=== PATIENT | male | born 1985 | race Caucasian/White ===

== ENCOUNTER 2019-12-11 19:10 | Emergency (ER) | payer OTHER, SELFPAY ==
[2019-12-11 19:31] VITALS: BP 128/79; PULSE 98; RESP 20; TEMP 37; O2SAT 96; BMI 26.4
[2019-12-11 20:18] LABS: COVID19 -Nasal RAPID Negative (Negative)
--- NOTE | 2019-12-11 21:01 | ED_ITS ---
HPI - Recheck/Abnormal Lab/Rx <PAWEL Cortes - Last Filed: 12/11/19 21:10> General Chief Complaint: Recheck/Abnormal Lab/Rx Stated Complaint: wants a covid test, no symptoms Time Seen by Provider: 12/11/19 20:35 Source: patient Mode of arrival: Ambulatory Limitations: no limitations History of Present Illness HPI narrative: This is a 33-year-old male, nonsmoker, who has no contributory medical history presents to ED requesting for COVID-19 test. Patient reports he received a phone call from work that at least 2 other coworkers had positive COVID test. He reports he had close contact with his coworkers on Thursday through . He is not sure whether they have Covid symptoms. Patient reports he does not have Covid releated symptoms such as fever, dyspnea, cough, sore throat, headache, fatigue, or diarrhea. Patient is concerned since he has very young daughter who has respiratory problems and would like to get test done today. Related Data Allergies Allergy/AdvReac Type Severity Reaction Status Date / Time No Known Drug Allergies Allergy Verified 12/11/19 19:37 Review of Systems <PAWEL Cortes - Last Filed: 12/11/19 21:10> Review of Systems Narrative: General: Denies fever, chills, fatigue, malaise, sweats. HEENT: Denies sinus pain, ear pain, sore throat, difficulty swallowing, dizziness. Respiratory: Denies dyspnea, cough, wheezing, hemoptysis, sputum. Cardiovascular: Denies chest pain, palpitations, orthopnea, edema. Gastrointestinal: Denies nausea, vomiting, abdominal pain, diarrhea, constipation, melena. : Denies dysuria, frequency, incontinence, hematuria, urinary retention. Musculoskeletal: Denies weakness, joint pain or bony pain. Skin: Denies rash, skin lesions, or other. Neurologic: Denies weakness, headache, numbness, change in speech, confusion, seizures, incoordination. Psychiatric: No concerning psychosocial issues. 12-point review of systems is negative except for those stated above. Patient History <PAWEL Cortes - Last Filed: 12/11/19 21:10> Medical History No significant past medical history (Acute) Surgical History No pertinent past surgical history (Acute) Social History Smoking Status: Never smoker Smoking Status: Never smoker alcohol intake frequency: 0-2 drinks per day Substance Use Type: does not use Exam <PAWEL Cortes - Last Filed: 12/11/19 21:10> Narrative Exam Narrative: General appearance: well developed, well nourished, in no acute distress. Head: normocephalic, atraumatic, no scalp lesions, non-tender. ENT: Hearing grossly intact. Nose without bleeding, purulent discharge. Mucous membrane moist, no mucosal lesion. Throat without erythema, tonsillar hypertrophy or exudate. Uvula in midline, airway patent. Neck/Thyroid: neck supple, full range of motion, no visible masses or meningeal signs. No JVD, non-tender without lymphadenopathy. Skin: no suspicious rashes, lesions over visible areas. Warm and dry and appropriate color for ethnicity. Heart: no clubbing, no cyanosis, no edema. S1 and S2 normal. RRR w/o murmurs, clicks, or bruits. Lungs: Breathing even and unlabored. No stridor. No accessory muscles used. Able to speak in full sentences. Chest: normal shape and expansion. Abdomen: non-obese, non-distended. Neurologic: alert and oriented. Cognitive exam, [employer]ATOR and PNS grossly intact on informal exam. Psych: good eye contact, normal affect. Initial Vital Signs Initial Vital Signs: Vital Signs Temperature 98.6 F 12/11/19 19:31 Pulse Rate 98 H 12/11/19 19:31 Respiratory Rate 20 12/11/19 19:31 Blood Pressure 128/79 12/11/19 19:31 Pulse Oximetry 96 12/11/19 19:31 <Ingris Cornejo MD - Last Filed: 12/12/19 02:58> Initial Vital Signs Initial Vital Signs: Vital Signs Temperature 98.6 F 12/11/19 19:31 Pulse Rate 98 H 12/11/19 19:31 Respiratory Rate 20 12/11/19 19:31 Blood Pressure 128/79 12/11/19 19:31 Pulse Oximetry 96 12/11/19 19:31 Scores <Devendra BestPAWEL - Last Filed: 12/11/19 21:10> GCS Gerardo coma scale eye opening: Spontaneous Gerardo coma scale verbal response: Orientated [place] coma scale motor response: Obey commands Gerardo coma scale total score: 15 Course <Devendra BestPAWEL - Last Filed: 12/11/19 21:10> Orders Ordered: ED Orders 12/11/19 19:41 COVID19 -ED/INPAT/OR/L&D Stat Vital Signs Vital signs: Vital Signs - 8 hr 12/11/19 19:31 Temperature 98.6 F Pulse Rate 98 H Respiratory Rate 20 Blood Pressure 128/79 Pulse Oximetry 96 <Ingris Cornejo MD - Last Filed: 12/12/19 02:58> Orders Ordered: ED Orders 12/11/19 19:41 COVID19 -ED/INPAT/OR/L&D Stat Vital Signs Vital signs: Vital Signs - 8 hr 12/11/19 19:31 Temperature 98.6 F Pulse Rate 98 H Respiratory Rate 20 Blood Pressure 128/79 Pulse Oximetry 96 MDM - Recheck/Abnormal Lab/Rx <Devendra LeyWillieAlexanderPAWEL costello - Last Filed: 12/11/19 21:10> Differential Diagnosis Differential diagnosis: Likely other (Encounter for lab test for Covid) Medical Records Attestation: I reviewed the patient's medical records. Lab Data Attestation: I reviewed the patient's lab results. 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 Patient is concerned since his young daughter has respiratory problems. Patient endorses no Covid related symptoms. Patient is afebrile with stable vital signs. Patient's Covid test is negative. Patient advised to continue with good hand hygiene and social distancing. Provided handout on COVID-19 prevention and what to do if has symptoms. Return precautions were discussed with patient and he verbalized understanding and agreement with the treatment plan. <Ingris Cornejo MD - Last Filed: 12/12/19 02:58> Lab Data Labs: Lab Results 12/11/19 Range/Units 19:41 COVID-19 PCR Negative (Negative) Discharge Plan Departure Patient Disposition: Home Clinical Impression: Encounter for laboratory testing for COVID-19 virus Discharge Date/Time: 12/11/19 21:03 Instructions: Can COVID-19 be prevented? Activity Restrictions/Additional Instructions: You you were here today for Covid test after close contact with co-workers who are positive for Covid. Your test today was negative. Please continue to keep social distancing, good hand hygiene to prevent cope with infection. What to do: *Take your medications as directed. *Follow up with your primary care provider in 2-3 days, call for an appointment. Let them know you were seen in the ED and that we asked you to be seen in follow up. *Return to ED if you have any new, worsening, or concerning symptoms, such as [short of breath, chest pain, sore throat, cough, fever, diarrhea, fatigue or any acute concerns]. Referrals: [facility] [Outside] <Ingris Cornejo MD - Last Filed: 12/12/19 02:58> Cosign ED Attending Cosignature Attestation: I was immediately available in the department for consultation throughout this patient's visit. I agree with documentation as above. Ingris Cornejo MD
== END 2019-12-11 21:03 | disposition home or self-care (01) ==
PROVIDERS: Emergency Provider Nurse Practitioner Family
DX: Z03.818 Encounter for observation for suspected exposure to other biological agents ruled out (principal)
CPT/HCPCS: 87635; 99281; 99282

== ENCOUNTER → 2021-06-18 10:40 | Outpatient (CLI) | payer OTHER, SELFPAY ==
--- NOTE | 2021-06-18 | DI.MRI.S_ITS ---
PROCEDURE: MR SHOULDER RT W CON INDICATIONS: RIGHT SHOULDER PAIN TECHNIQUE: After the administration of 12 mL of dilute intra-articular Gadolinium contrast, oblique coronal T1 and T2 spin echo with fat saturation, oblique sagittal T1 spin echo with and without fat saturation, oblique sagittal T2 fast spin echo with fat saturation, axial T1 spin echo with fat saturation through the shoulder. COMPARISON: None. FINDINGS: Image quality: Excellent. Rotator cuff: The supraspinatus, infraspinatus, and subscapularis tendons appear intact throughout. No rotator cuff muscle atrophy on sagittal images. Bones and bursae: No bone marrow contusions or fractures. No acromioclavicular joint degeneration. The acromion demonstrates conventional anatomy, without an os acromiale. Capsule and soft tissues: Contrast extends into the posterior, superior labrum, compatible with labral tear (9-20; 8-12). The glenohumeral ligaments appear intact. The long head of the biceps tendon demonstrates normal location and morphology. The coracohumeral ligament is of normal thickness. No intra-articular bodies. IMPRESSION: Superior, posterior labral tear. Dictated by: Jaren Hanson M.D. on 06/18/2021 at 12:34 Approved by: Jaren Hanson M.D. on 06/18/2021 at 12:41
--- NOTE | 2021-06-18 | DI.RAD.S_ITS ---
PROCEDURE: FL SHOULDER INJECTION MR/CT RT INDICATIONS: RIGHT SHOULDER PAIN COMPARISON: None. TECHNIQUE: The indications, alternatives, benefits, risks, and complications of the procedure were explained to the patient. Written informed consent was obtained and placed in the chart. The shoulder was examined fluoroscopically and a site for needle placement chosen for entry into the glenohumeral joint from an anterior approach. The skin was prepped and draped in a sterile fashion, and 1% lidocaine infiltrated from skin down to joint capsule. A spinal needle was inserted into the glenohumeral joint, and a small amount of iodinated contrast media injected to confirm intra-articular placement of the needle tip. This was followed by approximately 12 mL dilute solution of a gadolinium containing MR contrast agent. The needle was removed and a dressing was applied. The patient was given postprocedural instructions and sent to the MR suite for MR imaging. FINDINGS: A single fluoroscopic spot image demonstrates intra-articular location of injected iodinated contrast. IMPRESSION: Successful fluoroscopically guided administration of dilute Gadolinium solution into the shoulder joint for MR arthrogram. Dictated by: Luciana Banuelos MD, PhD on 06/18/2021 at 12:18 Approved by: Luciana Banuelos MD, PhD on 06/18/2021 at 12:18
== END ==
PROVIDERS: PCP Student in an Organized Health Care Education/Training Program; Referring Provider Student in an Organized Health Care Education/Training Program; Visit Provider Student in an Organized Health Care Education/Training Program
DX: S43.491A Other sprain of right shoulder joint, initial encounter (principal); M25.511 Pain in right shoulder
CPT/HCPCS: 23350; 73222; 77002

== ENCOUNTER 2023-04-20 20:35 | Emergency (ER) | payer OTHER, SELFPAY ==
[2023-04-20] VITALS (8 sets, daily range): BP systolic 113–140; BP diastolic 65–83; PULSE 67–86; RESP 5–17; TEMP 36.8; O2SAT 95–98; BMI 28.3
--- NOTE | 2023-04-20 21:47 | PC.NURSE ---
Pt states that he has been seen by [facility] provider, but still no improvement.
--- NOTE | 2023-04-20 22:42 | DI.RAD.S_ITS ---
PROCEDURE: XR CHEST 1V INDICATIONS: dyspnea on exertion TECHNIQUE: One view of the chest was acquired. COMPARISON: None. FINDINGS: Surgical changes and devices: None. Lungs and pleura: Lungs are clear. No pleural effusions or pneumothorax. Mediastinum: Mediastinal contours appear normal. Heart size is normal. Bones and chest wall: No suspicious bony lesions. Overlying soft tissues appear unremarkable. IMPRESSION: No acute cardiopulmonary abnormalities or focal airspace disease. Dictated by: Peña Elizabeth M.D. on 04/20/2023 at 23:12 Approved by: Peña Elizabeth M.D. on 04/20/2023 at 23:12
--- NOTE | 2023-04-20 22:44 | ED.SOB ---
HPI - SOB/Dyspnea General Chief Complaint: Shortness of Breath/Dyspnea Stated Complaint: sob, fatigue Time Seen by Provider: 04/20/23 22:31 Source: patient Mode of arrival: Ambulatory History of Present Illness HPI Narrative: This is a 37-year-old male who is previously healthy. He is here concerned about 1 month of fatigue and dyspnea with exertion. Onset was gradual. Did not have an illness at the onset. He has not having chest pain fevers nausea vomiting or weight loss. Says that [place] and ?CO2 is elevated?. Uses CPAP machine. He has not taking any regular medications. He has not had any black stool or chest pain. He does note getting short of breath with exertion. Related Data Allergies Allergy/AdvReac Type Severity Reaction Status Date / Time No Known Drug Allergies Allergy Verified 12/11/19 19:37 Patient History Medical History (Updated 04/20/23 @ 23:47 by Kwadwo Robles MD) No significant past medical history Surgical History No pertinent past surgical history Social History Smoking Status: Never smoker Smoking Status: Never smoker alcohol intake frequency: 0-2 drinks per day Substance Use Type: does not use Exam Initial Vital Signs Initial Vital Signs: Vital Signs Pulse Rate 86 04/20/23 20:44 Blood Pressure 140/83 04/20/23 20:44 Pulse Oximetry 98 04/20/23 20:44 Const Other: Well-appearing with normal vital signs [facility] Head: normocephalic and atraumatic Neck Other: No thyromegaly Resp Other: Breath sounds are clear and equal, speaking in full sentences Cardio Other: Regular rhythm rate no murmur rub or gallop GI Other: Abdomen is soft and nontender Skin Other: Warm and dry Neuro Other: Alert oriented, no focal deficits Psych Other: Mood is appropriate Course Orders Ordered: ED Orders 04/20/23 22:42 CXR [XR chest 1V] Stat EKG-12 Lead Stat 04/20/23 23:00 BNP [NT-proBNP (BNP-Adult 18+)] Stat CBC Auto Diff [Complete Blood Count AUTO DIFF] Stat CMP [Comprehensive Metabolic Panel] Stat TSH [Thyroid Stimulating Hormone] Stat Vital Signs Vital signs: Vital Signs - 8 hr 04/20/23 20:44 04/20/23 20:44 04/20/23 20:45 Temperature 98.3 F Pulse Rate 86 78 Respiratory Rate 16 Blood Pressure 140/83 140/83 Pulse Oximetry 98 96 Oxygen Delivery Method Room Air 04/20/23 21:00 04/20/23 21:00 04/20/23 21:30 Temperature Pulse Rate 82 75 Respiratory Rate 15 5 L Blood Pressure 127/73 Pulse Oximetry 96 95 Oxygen Delivery Method 04/20/23 21:30 04/20/23 22:00 04/20/23 22:00 Temperature Pulse Rate 77 Respiratory Rate 10 L Blood Pressure 118/71 117/75 Pulse Oximetry 96 Oxygen Delivery Method 04/20/23 22:30 04/20/23 22:30 04/20/23 23:00 Temperature Pulse Rate 73 Respiratory Rate 15 Blood Pressure 130/78 113/65 Pulse Oximetry 96 Oxygen Delivery Method 04/20/23 23:00 04/20/23 23:30 04/20/23 23:30 Temperature Pulse Rate 67 67 Respiratory Rate 17 11 L Blood Pressure 113/69 Pulse Oximetry 96 96 Oxygen Delivery Method MDM - SOB/Dyspnea Lab Data Lab results narrative: CBC with diff, CMP, TSH proBNP all unremarkable 04/20/23 23:00 04/20/23 23:00 Labs: Lab Results 04/20/23 Range/Units 23:00 WBC 7.5 (4.5-11.0) X10^3/uL RBC 4.69 (4.5-5.9) X10^6/uL Hgb 14.5 (13.5-17.5) g/dL Hct 40.6 L (41-53) % MCV 86.6 (80-100) fL MCH 30.9 (26-34) PG MCHC 35.6 (30-36) % RDW 12.6 (11.6-14.8) % Plt Count 211 (150-400) X10^3/uL Neut % (Auto) 48.2 L (50-75) % Lymph % (Auto) 38.7 (25-40) % Braxton % (Auto) 10.1 (3-14) % Eos % (Auto) 1.5 L (2-4) % Baso % (Auto) 1.5 (0-2) % Neut # (Auto) 3600 (0585-2792) /uL Lymph # (Auto) 2900 (9680-8570) /uL Braxton # (Auto) 800 (0-900) /uL Eos # (Auto) 100 (0-450) /uL Baso # (Auto) 100 (0-100) /uL Sodium 139 (137-145) mmol/L Potassium 3.7 (3.4-5.1) mmol/L Chloride 104 (98-107) mmol/L Carbon Dioxide 28 (22-32) mmol/L BUN 21 H (9-20) mg/dL Creatinine 1.28 H (0.66-1.25) mg/dL Estimated GFR > 60 (>60) mL/min BUN/Creatinine Ratio 16.4 (6-22) Glucose 107 H (70-100) mg/dL Calcium 9.0 (8.4-10.2) mg/dL Total Bilirubin 0.5 (0.2-1.3) mg/dL AST 26 (17-59) IU/L ALT 19 (<50) IU/L Alkaline Phosphatase 48 (38-126) U/L NT-Pro-B Natriuret Pep < 20 (<125) pg/mL Total Protein 7.0 (6.3-8.2) g/dL Albumin 4.1 (3.5-5.0) g/dL Globulin 2.9 (1.7-4.1) g/dL Albumin/Globulin Ratio 1.4 (1.0-2.8) TSH 3.04 (0.47-4.68) uIU/mL Imaging Data Chest x-ray: My Impression: No acute disease on my independent review Radiologist's Impression: Per radiology, no acute finding ECG Data Interpretation: EKG shows normal sinus rhythm at 69, normal intervals, no acute ST elevation no evidence of previous infarction this is a normal EKG MDM Narrative Medical decision making narrative: 37-year-old male concerned about dyspnea with exertion and fatigue. There is a broad differential, I considered the possibility of anemia, coronary artery disease, heart failure, pneumonia electrolyte disturbance or renal failure. Workup is diffusely reassuring. He has not having chest pain, he has not hypertensive, I think ACS is unlikely we will discharge him home to primary care follow up. Discharge Plan Departure Patient Disposition: Home Clinical Impression: Dyspnea on exertion Fatigue Qualifiers: Fatigue type: unspecified Qualified Code(s): R53.83 - Other fatigue Activity Restrictions/Additional Instructions: Emergency department workup tonight is reassuring. No significant abnormalities are seen. I think it is safe to follow up with her primary care provider for a recheck. There was 1 lab that is not yet resulted, I will watch for it and call you if it is abnormal. Referrals: ProviderMahsa [Primary Care Provider] - Stand Alone Forms: Patient Portal/API
[2023-04-20 23:11] LABS: Add Manual Diff / Slide Review NO; Basophils Absolute Auto 100 /uL (0-100); Basophils Percent Auto 1.5 % (0-2); Eosinophils Absolute Auto 100 /uL (0-450); Eosinophils Percent Auto 1.5 % (2-4); Hematocrit 40.6 % (41-53); Hemoglobin 14.5 g/dL (13.5-17.5); Lymphocytes Absolute Auto 2900 /uL (1100-4500); Lymphocytes Percent Auto 38.7 % (25-40); Mean Corpuscular HGB Conc 35.6 % (30-36); Mean Corpuscular Hemoglobin 30.9 PG (26-34); Mean Corpuscular Volume 86.6 fL (80-100); Monocytes Absolute Auto 800 /uL (0-900); Monocytes Percent Auto 10.1 % (3-14); Neutrophils Absolute Auto 3600 /uL (1500-7000); Neutrophils Percent Auto 48.2 % (50-75); Platelet Count 211 X10^3/uL (150-400); Red Blood Cell Count 4.69 X10^6/uL (4.5-5.9); Red Cell Distribution Width 12.6 % (11.6-14.8); White Blood Cell Count 7.5 X10^3/uL (4.5-11.0)
[2023-04-20 23:22] LABS: Alanine Aminotransferase 19 IU/L (<50); Albumin 4.1 g/dL (3.5-5.0); Albumin Globulin Ratio 1.4 (1.0-2.8); Alkaline Phosphatase 48 U/L (38-126); Aspartate Aminotransferase 26 IU/L (17-59); BUN Creatinine Ratio 16.4 (6-22); Bilirubin Total 0.5 mg/dL (0.2-1.3); Blood Urea Nitrogen 21 mg/dL (9-20); Carbon Dioxide 28 mmol/L (22-32); Chloride 104 mmol/L (98-107); Estimated Glomerular Filt Rate > 60 mL/min (>60); Globulin 2.9 g/dL (1.7-4.1); Glucose 107 mg/dL (70-100); HEMOLYSIS 18 (0-50); Potassium 3.7 mmol/L (3.4-5.1); Sodium 139 mmol/L (137-145)
[2023-04-20 23:31] LABS: NT-proBNP (BNP-Adult 18+) < 20 pg/mL (<125)
[2023-04-21 00:03] LABS: Thyroid Stimulating Hormone 3.04 uIU/mL (0.47-4.68)
== END 2023-04-21 00:01 | disposition home or self-care (01) ==
PROVIDERS: Emergency Provider Emergency Medicine
DX: R06.09 Other forms of dyspnea (principal); R53.83 Other fatigue
CPT/HCPCS: 36415; 71045; 80053; 83880; 84443; 85025; 93005; 99283; 99284

== ENCOUNTER → 2023-07-13 11:02 | Outpatient (CLI) | payer OTHER, SELFPAY ==
--- NOTE | 2023-07-13 | DI.MRI.S_ITS ---
PROCEDURE: MR SHOULDER RT W CON INDICATIONS: Pain in right shoulder TECHNIQUE: After the administration of 12 mL of dilute intra-articular Gadolinium contrast, oblique coronal T1 and T2 spin echo with fat saturation, oblique sagittal T1 spin echo with and without fat saturation, oblique sagittal T2 fast spin echo with fat saturation, axial T1 spin echo with fat saturation through the shoulder. COMPARISON: [facility], MR, MR SHOULDER RT W CON, 06/18/2021, 11:11. FINDINGS: Image quality: Excellent. Rotator cuff: There is prior rotator cuff tendon repair. Low-grade articular surface partial-thickness tear involving distal supraspinatus at its insertion on the humeral head is seen extending to musculotendinous junction. Distal infraspinatus tendinosis is noted. The subscapularis tendon is intact. No full-thickness rotator cuff tendon rupture. No rotator cuff muscle atrophy on sagittal images. Bones and bursae: Postsurgical changes are noted in lateral aspect of humeral head. No bone marrow contusions or fractures. No acromioclavicular joint degeneration. The acromion demonstrates conventional anatomy, without an os acromiale. Capsule and soft tissues: There is subtle superior anterior labral tear with contour irregularity and contrast extension. The glenohumeral ligaments appear intact. The long head of the biceps tendon demonstrates normal location and morphology. The rotator interval appears normal, without fibrosis. The coracohumeral ligament is of normal thickness. No intra-articular bodies. IMPRESSION: 1. Prior rotator cuff tendon repair with postsurgical changes. No marrow edema. No acute fracture or dislocation. No gross loose bodies. 2. Low-grade articular surface partial-thickness tear involving distal supraspinatus extending to musculotendinous junction. 3. Suggestion of subtle superior anterior labral tear at 12 to 1 o'clock position. Dictated by: Devin Leigh M.D. on 07/13/2023 at 14:19 Approved by: Devin Leigh M.D. on 07/13/2023 at 14:27
--- NOTE | 2023-07-13 | DI.RAD.S_ITS ---
PROCEDURE: FL SHOULDER INJECTION MR/CT RT INDICATIONS: Pain in right shoulder COMPARISON: [facility], , [place] SHOULDER INJECTION MR/CT RT, 06/18/2021, 11:01. TECHNIQUE: The indications, alternatives, benefits, risks, and complications of the procedure were explained to the patient. Written informed consent was obtained and placed in the chart. The shoulder was examined fluoroscopically and a site for needle placement chosen for entry into the glenohumeral joint from an anterior approach. The skin was prepped and draped in a sterile fashion, and 1% lidocaine infiltrated from skin down to joint capsule. A spinal needle was inserted into the glenohumeral joint, and a small amount of iodinated contrast media injected to confirm intra-articular placement of the needle tip. This was followed by approximately 12 mL dilute solution of a gadolinium containing MR contrast agent. The needle was removed and a dressing was applied. The patient was given postprocedural instructions and sent to the MR suite for MR imaging. FINDINGS: A single fluoroscopic spot image demonstrates intra-articular location of injected iodinated contrast. IMPRESSION: Successful fluoroscopically guided administration of dilute Gadolinium solution into the shoulder joint for MR arthrogram. Dictated by: Peña Elizabeth M.D. on 07/13/2023 at 21:26 Approved by: Peña Elizabeth M.D. on 07/13/2023 at 21:27
[2023-07-13] MEDS: SODIUM CHLORIDE 0.9 % 20 ML VIAL IV (11:45)
[2023-07-13] MEDS: LIDOCAINE 1% 20 ML INJ (11:45)
== END ==
PROVIDERS: Referring Provider General Practice; Visit Provider General Practice
DX: M75.111 Incomplete rotator cuff tear or rupture of right shoulder, not specified as traumatic (principal); M25.511 Pain in right shoulder; Z98.890 Other specified postprocedural states
CPT/HCPCS: 23350; 73040; 73222; A9579; Q9967